=== PATIENT | male | born 1965 | race Hispanic/Latino ===

== ENCOUNTER 2016-07-04 17:57 | Emergency (ER) | payer OTHER ==
[2016-07-04 18:06] VITALS: RESP 20
[2016-07-04 18:09] VITALS: BMI 25.1
[2016-07-04] MEDS ORDERED: Oxycodone/Acetaminophen 5/325 mg Tab PO STA ×2 (18:29→19:45)
--- NOTE | 2016-07-04 19:54 | ED PDOC ---
Arrival/HPI - General Historian: Patient <Justine Giraldo PA-C - Last Filed: 07/04/16 20:16> <Raman Mcdaniel - Last Filed: 07/04/16 20:23> - General Chief Complaint: Trauma Time Seen by Provider: 07/04/16 18:26 - History of Present Illness Narrative History of Present Illness (Text): 07/04/16 19:50 Patient with past medical history of chronic low back pain due to herniated and bulging disc in the lumbar spine, reports exacerbating his chronic low back pain when he was walking and missed his step on a curb causing him to fall forward onto his knees. Patient states that he used to be on pain management as ago, then his pain management doctor lost his license to practice and afterwards the patient had to go to rehabilitation because he started withdrawing from chronic narcotic pain use. Patient states that he tries to his best to live with his chronic pain, states that a few months ago he saw a consumer education specialist and an orthopedist in [place], who states that he is not a surgical candidate. At this time, his PMDs recommending physical therapy which he has not gone for yet. Otherwise: (-) urinary symptoms (-) paresthesias, (-) weakness, (-) acute bowel or bladder dysfunction, (-) fever. PMD Dusty (Justine Giraldo PA-C) Past Medical History - Provider Review Nursing Documentation Reviewed: Yes - Infectious Disease Hx of Infectious Diseases: None - Cardiac Hx Cardiac Disorders: No - Pulmonary Hx Respiratory Disorders: Yes Hx Emphysema: Yes - Neurological Hx Neurological Disorder: No - HEENT Hx HEENT Disorder: No - Renal Hx Renal Disorder: No - Endocrine/Metabolic Hx Endocrine Disorders: No - Hematological/Oncological Hx Blood Disorders: No - Integumentary Hx Dermatological Disorder: No - Musculoskeletal/Rheumatological Hx Musculoskeletal Disorders: Yes Hx Back Pain: Yes - Gastrointestinal Hx Gastrointestinal Disorders: No - Genitourinary/Gynecological Hx Genitourinary Disorders: No - Psychiatric Hx Psychophysiologic Disorder: No Hx Substance Use: No - Surgical History Other/Comment: colonoscopy - Anesthesia Hx Anesthesia: Yes Hx Anesthesia Reactions: No <Justine Giraldo PA-C - Last Filed: 07/04/16 20:16> Family/Social History - Physician Review Nursing Documentation Reviewed: Yes Family/Social History: No Known Family HX Smoking Status: Heavy Smoker > 10 Cigarettes Daily Hx Alcohol Use: No Hx Substance Use: No <Justine Giraldo PA-C - Last Filed: 07/04/16 20:16> Allergies/Home Meds <Justine Giraldo PA-C - Last Filed: 07/04/16 20:16> <Raman Mcdaniel - Last Filed: 07/04/16 20:23> Allergies/Adverse Reactions: Allergies No Known Allergies Allergy (Verified 07/04/16 18:04) Home Medications: Home Meds Medication Instructions Recorded Confirmed Fluticasone/Vilanterol [Breo 1 puff PO DAILY 07/04/16 07/04/16 Ellipta 100-25 Mcg INH] clonazePAM [Klonopin] 1 mg PO TID 07/04/16 07/04/16 Review of Systems - Review of Systems Constitutional: Normal. absent: Fatigue, Weight Change, Fevers Respiratory: Normal. absent: SOB, Cough, Sputum Cardiovascular: Normal. absent: Chest Pain, Palpitations, Edema Gastrointestinal: Normal. absent: Abdominal Pain, Stool Changes, Appetite Changes Musculoskeletal: Normal, Back Pain. absent: Arthralgias, Neck Pain Skin: Normal. absent: Rash, Pruritis, Skin Lesions <Justine Giraldo PA-C - Last Filed: 07/04/16 20:16> Physical Exam <Justine Giralod PA-C - Last Filed: 07/04/16 20:16> <Raman Mcdaniel - Last Filed: 07/04/16 20:23> - Physical Exam Narrative Physical Exam (Text): 07/04/16 19:55 GENERAL APPEARANCE: Patient is awake, alert, oriented x 3, in moderate painful distress. SKIN: Warm, dry; (-) cyanosis. EYES: (-) conjunctival pallor. ENMT: Mucous membranes moist. NECK: (-) tenderness, (-) stiffness, (-) lymphadenopathy. CHEST AND RESPIRATORY: (-) rales, (-) rhonchi, (-) wheezes; breath sounds equal bilaterally. HEART AND CARDIOVASCULAR: (-) irregularity; (-) murmur, (-) gallop. ABDOMEN AND GI: Soft; (-) tenderness; (-) palpable mass. BACK: Diffusely tender paralumbar area, (+) mild spasm, (-) direct bony tenderness, (-) deformity. Straight leg raising (-) bilaterally. EXTREMITIES: (-) deformity. Distal pulses good bilaterally. NEURO AND PSYCH: Mental status as above. Intact sensation bilaterally; normal strength in extension of the knees, plantar and dorsiflexion of the toes. DTRs symmetric. (Justine Giraldo PA-C) Vital Signs Temp Pulse Resp BP Pulse Ox 07/04/16 18:05 97.9 F 100 H 20 115/74 96 Medical Decision Making <Justine Giraldo PA-C - Last Filed: 07/04/16 20:16> <Raman Mcdaniel - Last Filed: 07/04/16 20:23> ED Course and Treatment: 07/04/16 19:58 50-year-old male with history of chronic low back pain due to herniated and bulging disks complaining of exacerbation of his low back pain when he missed his step when he was walking. Patient medicated with Percocet by mouth, Toradol IM and Flexeril by mouth. On reevaluation, patient reports mild improvement of pain, earlier patient was laying in bed, and now able to sit up comfortably. Still complains of pain in his lower back however. Patient medicated with another dose of Percocet by mouth. Based on history and exam, plan will be for outpatient follow-up with PMD. Patient given referral to orthopedist on-call, the clinic and was given a welt stitcher service phone number for further assistance. Prescriptions provided. Patient states he fully agrees with and understands discharge instructions. States that he agrees with the plan and disposition. Verbalized and repeated discharge instructions and plan. I have given the patient opportunity to ask any additional questions. Follow up with primary care physician and referrals provided in 1-2 days without fail. Advised to take medication as prescribed. Return to the emergency room at any time for any new or worsening symptoms. (Justine Giraldo PA-C) - Medication Orders Current Medication Orders: Discontinued Medications Cyclobenzaprine HCl (Flexeril) 10 mg PO STAT STA Stop: 07/04/16 18:30 Last Admin: 07/04/16 19:15 Dose: 10 mg Ketorolac Tromethamine (Toradol) 60 mg IM STAT STA Stop: 07/04/16 18:30 Last Admin: 07/04/16 19:14 Dose: 60 mg Re-Assess: [facility] Pain Assessment Document 07/04/16 20:14 GMI (Rec: 07/04/16 20:17 GMI [id number]) Pain Reassessment Is this a pain reassessment? Yes Oxycodone/Acetaminophen (Percocet 5/325 Mg Tab) 1 tab PO STAT STA Stop: 07/04/16 18:30 Last Admin: 07/04/16 19:15 Dose: 1 tab Re-Assess: [facility] Pain Assessment Document 07/04/16 20:15 GMI (Rec: 07/04/16 20:17 GMI [id number]) Pain Reassessment Is this a pain reassessment? Yes Sleep Is patient sleeping during reassessment? No Presence of Pain Presence of Pain Yes Oxycodone/Acetaminophen (Percocet 5/325 Mg Tab) 1 tab PO STAT STA Stop: 07/04/16 19:46 Last Admin: 07/04/16 20:16 Dose: 1 tab - PA / BUTTON BUTTONHOLE MARKER / Resident Statement / has reviewed & agrees with the documentation as recorded. <Raman Mcdaniel - Last Filed: 07/04/16 20:23> Disposition/Present on Arrival - Present on Arrival Any Indicators Present on Arrival: No History of DVT/PE: No History of Uncontrolled Diabetes: No Urinary Catheter: No History of Decub. Ulcer: No History Surgical Site Infection Following: None - Disposition Have Diagnosis and Disposition been Completed?: Yes Disposition Time: 20:00 Patient Plan: Discharge <Justine Giraldo PA-C - Last Filed: 07/04/16 20:16> <Raman Mcdaniel - Last Filed: 07/04/16 20:23> - Disposition Diagnosis: Acute low back pain, Chronic low back pain Disposition: HOME/ ROUTINE Patient Problems: Current Active Problems Problem Status Onset Acute low back pain Acute Chronic low back pain Acute Condition: STABLE Discharge Instructions (ExitCare): Acute Low Back Pain (ED), Chronic Back Pain (ED) Print Language: KOSOVAN Additional Instructions: Thank you for letting us take care of you today. You were treated for acute low back pain, history of chronic low back pain due to herniated and bulging disc. The emergency medical care you received today was directed at your acute symptoms. If you were prescribed any medication, please fill it and take as directed. It may take several days for your symptoms to resolve. Return to the Emergency Department if your symptoms worsen, do not improve, or if you have any other problems. Please contact your doctor in 2 days for re-evaluation and follow up / or call one of the physicians/clinics you have been referred to that are listed on the Patient Visit Information form that is included in your discharge packet. Bring any paperwork you were given at discharge with you along with any medications you are taking to your follow up visit. Our treatment cannot replace ongoing medical care by a primary care provider (PCP) outside of the emergency department. Thank you for allowing the [facility] team to be part of your care today. Please excuse to following patient from his [facility] program for this week 07/05 -07/09. Prescriptions: Cyclobenzaprine [Cyclobenzaprine HCl] 10 mg PO TID #15 tab Meloxicam [Mobic] 15 mg PO DAILY #20 tab oxyCODONE/Acetaminophen [Percocet 5/325 mg Tab] 1 ea PO QID #16 tab Referrals: Elder Montano MD [Primary Care Provider] - Follow up with primary
[2016-07-04 20:38] VITALS: BP 109/72; PULSE 83; TEMP 97; O2SAT 100
== END 2016-07-04 20:39 | disposition home or self-care (01) ==
LOC: ED 17:57
DX: M54.5 Low back pain (principal); G89.29 Other chronic pain
CPT/HCPCS: 96372; 99285; J1885

== ENCOUNTER 2018-05-05 10:48 | Emergency (ER) | payer MEDICAID, OTHER ==
[2018-05-05 10:55] VITALS: BMI 29.4
[2018-05-05] MEDS: Albuterol-Ipratrop 3 mg / 0.5 (3 ml) UD IH SCH ×3 (11:11→11:42)
[2018-05-05 11:16] VITALS: TEMP 98.1
[2018-05-05] MEDS ORDERED: Magnesium Sulfate 1 gm in D5W 1 GM/100 ML BAG IVPB ONE (11:21)
--- NOTE | 2018-05-05 11:22 | ED PDOC ---
Arrival/HPI - General Chief Complaint: Shortness Of Breath Historian: Patient - History of Present Illness Narrative History of Present Illness (Text): 05/05/18 11:22 52 year old male, whose past medical history includes COPD, GERD, hemorrhoids, depression, substance use, and chronic low back pain due to herniated and bulging disc in the lumbar spine, who presents to the complaining of trouble breathing for the past 2 days. Patient states he was put on disability and his insurance now doesn't cover his usual ventilator, so he bought one off the streets, and it has not been relieving his symptoms. He also reports he has a chest cold for the past few weeks with a productive, brown phlegm cough. Patient denies any fevers, chills, headache, dizziness, diaphoresis, abdominal pain, nausea, vomiting, diarrhea, back pain, neck pain, or any other complaint. PMD: Dr. Montano Senior Genetic Counselor: Dr. Blake Time/Duration: < week (2 days) Symptom Onset: Gradual Symptom Course: Unchanged Activities at Onset: Light Context: Home Past Medical History - Provider Review Nursing Documentation Reviewed: Yes - Infectious Disease Hx of Infectious Diseases: None - Cardiac Hx Cardiac Disorders: No - Pulmonary Hx Respiratory Disorders: Yes Hx Chronic Obstructive Pulmonary Disease (COPD): Yes Hx Emphysema: Yes Hx Tuberculosis: No - Neurological Hx Neurological Disorder: No HX Cerebrovascular Accident: No Hx Seizures: No Hx Transient Ischemic Attacks (TIA): No - HEENT Hx HEENT Disorder: No - Renal Hx Renal Disorder: No - Endocrine/Metabolic Hx Endocrine Disorders: No - Hematological/Oncological Hx Blood Disorders: Yes Hx Bruising: No Hx Cancer: No - Integumentary Hx Dermatological Disorder: No - Musculoskeletal/Rheumatological Hx Musculoskeletal Disorders: Yes Hx Back Pain: Yes Hx Herniated Disk: Yes (LOW BACK, NO SURGERY) - Gastrointestinal Hx Gastrointestinal Disorders: Yes Hx Gastroesophageal Reflux: Yes Hx Hemorrhoids: Yes - Genitourinary/Gynecological Hx Genitourinary Disorders: No Hx Sexually Transmitted Diseases: No - Psychiatric Hx Psychophysiologic Disorder: Yes Hx Depression: Yes Hx Substance Use: Yes (PERCOCET/ ON METHADONE) - Surgical History Other/Comment: H/O ADENOMATOUS POLYP, BACK SURGERY - Anesthesia Hx Anesthesia: Yes Hx Anesthesia Reactions: Yes (VOMITING) Hx Malignant Hyperthermia: No - Suicidal Assessment Feels Threatened In Home Enviroment: No Family/Social History - Physician Review Nursing Documentation Reviewed: Yes Family/Social History: No Known Family HX Smoking Status: Former Smoker Hx Alcohol Use: No (stopped 6 months) Hx Substance Use: Yes (PERCOCET/ ON METHADONE) Allergies/Home Meds Allergies/Adverse Reactions: Allergies No Known Allergies Allergy (Verified 07/22/17 07:57) Home Medications: Home Meds Medication Instructions Recorded Confirmed Fluticasone/Vilanterol [Breo 1 puff PO DAILY 07/04/16 10/31/17 Ellipta 100-25 Mcg INH] Albuterol HFA [Ventolin HFA 90 2 puff INH Q6 PRN 07/22/17 10/31/17 mcg/actuation (8 g)] Methadone [Methadose] 120 mg PO DAILY 07/22/17 10/31/17 Mirtazapine 30 mg PO DAILY 07/22/17 10/31/17 Umeclidinium [place] [Incruse 1 puff INH DAILY 07/22/17 10/31/17 Ellipta] Montelukast [Singulair] 10 mg PO DAILY 10/31/17 10/31/17 Omeprazole 40 mg PO DAILY 10/31/17 10/31/17 Review of Systems - Physician Review All systems were reviewed & negative as marked: Yes - Review of Systems Constitutional: absent: Fevers Respiratory: SOB, Cough, Sputum Gastrointestinal: absent: Abdominal Pain, Diarrhea, Nausea, Vomiting Musculoskeletal: absent: Back Pain, Neck Pain Neurological: absent: Headache, Dizziness Physical Exam Vital Signs Reviewed: Yes Vital Signs Temp Pulse Resp BP Pulse Ox 05/05/18 10:48 98.1 F 72 20 127/91 H 93 L Temperature: Afebrile Blood Pressure: Hypertensive Pulse: Regular Respiratory Rate: Normal Appearance: Positive for: Well-Appearing, Non-Toxic, Comfortable Pain Distress: None Mental Status: Positive for: Alert and Oriented X 3 - Systems Exam Head: Present: Atraumatic, Normocephalic Pupils: Present: PERRL Extroacular Muscles: Present: EOMI Conjunctiva: Present: Normal Mouth: Present: Moist Mucous Membranes Neck: Present: Normal Range of Motion Respiratory/Chest: Present: Clear to Auscultation, Decreased Breath Sounds (diminished breath sounds), Other (no tripod position ). No: Respiratory Distress, Accessory Muscle Use, Wheezes (no audible wheezing ) Cardiovascular: Present: Regular Rate and Rhythm, Normal S1, S2. No: Murmurs Abdomen: Present: Distention, Other (soft). No: Tenderness, Peritoneal Signs Back: Present: Normal Inspection Upper Extremity: Present: Normal Inspection. No: Cyanosis, Edema Lower Extremity: Present: Normal Inspection. No: Edema Neurological: Present: GCS=15, CN II-XII Intact, Speech Normal Skin: Present: Warm, Dry, Normal Color. No: Rashes Psychiatric: Present: Alert, Oriented x 3, Normal Insight, Normal Concentration Medical Decision Making ED Course and Treatment: 05/05/18 11:36 Impression: 52 year old male who presents to the emergency department complaining of shortness of breath. Differential Diagnosis included but are not limited to: COPD exacerbation Plan: -- EKG -- Chest X-ray -- Duoneb -- Magnesium Sulfate -- SOLU-medrol -- Reassess and disposition Prior Visits: Notes and results from previous visits were reviewed. Progress Notes: - RAD Interpretation Narrative RAD Interpretations (Text): 05/05/18 13:05 Chest X-ray reviewed by radiologist, shows: IMPRESSION: No active disease. Technical Sales Director: Radiologist - EKG Interpretation EKG Interpretation (Text): 05/05/18 14:43 EKG performed at 10:56 reviewed by me, shows: NSR at 71bpm with no ST elevations and No T wave inversions. Interpreted by ED Physician: Yes Type: 12 lead EKG - Medication Orders Current Medication Orders: Albuterol/Ipratropium (Duoneb 3 Mg/0.5 Mg (3 Ml) Ud) 3 ml IH Q15M JENNIE Stop: 05/05/18 11:31 Last Admin: 05/05/18 11:11 Dose: 3 ml - Scribe Statement The provider has reviewed the documentation as recorded by the Katie Cooper Provider Scribe Attestation: All medical record entries made by the Scribsandy were at my direction and personally dictated by me. I have reviewed the chart and agree that the record accurately reflects my personal performance of the history, physical exam, medical decision making, and the department course for this patient. I have also personally directed, reviewed, and agree with the discharge instructions and disposition. Disposition/Present on Arrival - Present on Arrival Any Indicators Present on Arrival: No History of DVT/PE: No History of Uncontrolled Diabetes: No Urinary Catheter: No History of Decub. Ulcer: No History Surgical Site Infection Following: None - Disposition Have Diagnosis and Disposition been Completed?: Yes Diagnosis: COPD exacerbation Disposition: HOME/ ROUTINE Disposition Time: 13:12 Patient Plan: Discharge Condition: IMPROVED Discharge Instructions (ExitCare): Chronic Obstructive Pulmonary Disease (COPD), Including Emphysema Additional Instructions: All medical record entries made by the Scribe were at my direction and personally dictated by me. I have reviewed the chart and agree that the record accurately reflects my personal performance of the history, physical exam, medical decision making, and the department course for this patient. I have also personally directed, reviewed, and agree with the discharge instructions and disposition. Please follow up with your PCP in 1 week Prescriptions: Albuterol HFA [Ventolin HFA 90 mcg/actuation (8 g)] 2 puff IH Q6H #2 puff Referrals: Annette Alegre MD [Medical Doctor] - Follow up with primary [facility] [Outside] - Follow up with primary Forms: L2 (Malawian)
[2018-05-05] MEDS ORDERED: Albuterol 0.083% Inhal Sol (2.5 mg/3 mL) UD INH STA (12:05)
--- NOTE | 2018-05-05 12:25 | RAD ---
Date of service: 05/05/2018 HISTORY: sob COMPARISON: 04/27/2017 FINDINGS: LUNGS: No active pulmonary disease. PLEURA: No significant pleural effusion identified, no pneumothorax apparent. CARDIOVASCULAR: No aortic atherosclerotic calcification present. Normal cardiac size. No pulmonary vascular congestion. OSSEOUS STRUCTURES: No significant abnormalities. VISUALIZED UPPER ABDOMEN: Normal. OTHER FINDINGS: None. IMPRESSION: No active disease.
[2018-05-05 13:27] VITALS: BP 111/66; PULSE 79; RESP 18; O2SAT 91
--- NOTE | 2018-05-05 22:19 | CARD ---
APPROVED REPORT Date of service: 05/05/2018 EKG Measurement Heart [id number] <Conclusion> Normal sinus rhythm Normal ECG
== END 2018-05-05 13:29 | disposition home or self-care (01) ==
LOC: ED 10:48
DX: J44.1 Chronic obstructive pulmonary disease with (acute) exacerbation (principal); Z87.891 Personal history of nicotine dependence
CPT/HCPCS: 71045; 93005; 94640; 96374; 96375; 99285; J2930; J3475